=== PATIENT | male | born 1960 | race Caucasian/White ===

== ENCOUNTER 2023-05-03 08:23 | Inpatient (IN) | payer MEDICARE, OTHER ==
[2023-05-03] MEDS ORDERED: Aspirin 81 MG Tab.Chew PO ONE (08:43)
[2023-05-03] MEDS ORDERED: Nitroglycerin 0.4 MG Tab.SL SL PRN (08:43)
[2023-05-03] MEDS ORDERED: Sodium Chloride 0.9% 10 ML Syringe FLUSH PRN (08:43)
[2023-05-03] MEDS ORDERED: Morphine 4 MG/ML Syringe IVPUSH PRN (08:43)
[2023-05-03 08:47] LABS: BASOPHILS PERCENT AUTO 0.1 % (0.1-1.3); EOSINOPHILS ABSOLUTE AUTO 0.09 K/uL (0.00-0.40); EOSINOPHILS PERCENT AUTO 1.3 % (0.0-5.4); HEMATOCRIT 47.5 % (38.4-49.7); HEMOGLOBIN 15.7 g/dL (12.9-16.9); IMMATURE GRAN PERCENT AUTO 0.1 % (0.0-0.7); LYMPHOCYTES ABSOLUTE AUTO 2.15 K/uL (0.8-3.3); LYMPHOCYTES PERCENT AUTO 31.6 % (11.4-47.7); MEAN CORPUSCULAR HEMOGLOBIN 29.5 pg (31.6-35.5); MEAN CORPUSCULAR HGB CONC 33.1 g/dL (31.6-35.5); MEAN CORPUSCULAR VOLUME 89.1 fL (81.4-99.0); MONOCYTES ABSOLUTE AUTO 0.75 K/uL (0.20-0.90); NEUTROPHILS ABSOLUTE AUTO 3.79 K/uL (1.0-7.6); NEUTROPHILS PERCENT AUTO 55.9 % (40.0-78.1); PLATELET COUNT,PLT 114 K/uL (130-375); RED BLOOD CELL COUNT 5.33 M/uL (4.14-5.76); WHITE BLOOD CELL COUNT,WBC 6.8 K/uL (3.2-11.0)
[2023-05-03 08:48] LABS: BASOPHILS ABSOLUTE AUTO 0.01 K/uL (0.00-0.10); IMMATURE GRAN ABSOLUTE AUTO 0.01 K/uL (0.00-0.23)
[2023-05-03 09:01] LABS: BASE EXCESS VENOUS -1.5 mm/L; BICARBONATE,VENOUS 22.5 mmol/L; CARBOXYHEMOGLOBIN 2.3 % (0.0-1.6); METHEMOGLOBIN 0.6 %; O2 SATURATION VENOUS 55.7; OXYHEMOGLOBIN 54.1 %; PCO2 VENOUS 37.6 mm/Hg; PH,VENOUS 7.394 (7.350-7.450); PO2 VENOUS 32.3 mm/Hg; TOTAL HEMOGLOBIN 16.4 g/dL (13.5-18.0)
[2023-05-03 09:02] LABS: A/G RATIO 0.8 (1.2-2.2); ALANINE AMINOTRANSFERASE,ALT 47 U/L (12-78); ALBUMIN 3.5 g/dL (3.4-5.0); ALKALINE PHOSPHATASE 90 U/L (46-116); ASPARTATE AMNIOTRANSFERASE,AST 40 U/L (15-37); BILIRUBIN TOTAL 0.8 mg/dL (0.2-1.0); BLOOD UREA NITROGEN,BUN 15 mg/dL (7-18); CALCIUM 8.7 mg/dL (8.5-10.1); CARBON DIOXIDE,CO2 22 mmol/L (21-32); CHLORIDE,CL 105 mmol/L (100-108); ESTIMATED GFR 86 mL/min (>60); GLUCOSE RANDOM 171 mg/dL (74-106); SODIUM,NA 139 mmol/L (140-148); TROPONIN I HIGH SENSITIVITY 6.8 pg/mL (<=60.3)
[2023-05-03] MEDS ORDERED: Albuterol/Ipratropium 3.0-0.5 MG/3 ML Neb Soln NEB ONE (10:00)
[2023-05-03] MEDS ORDERED: Sodium Chloride 0.9% 10 ML Syringe FLUSH ONE (12:26)
[2023-05-03] MEDS ORDERED: Iopamidol 755 Mg/ML 100 ML Bottle IV SCH (12:30)
[2023-05-03] MEDS ORDERED: Sodium Chloride 0.9% 100 ML IV SCH (12:30)
[2023-05-03] MEDS ORDERED: cefTRIAXone 1 GM in Sodium Chloride 0.9% 50 ML IV ONE (14:36)
[2023-05-03] MEDS ORDERED: Doxycycline 100 MG in Sodium Chloride 0.9% 100 ML IV ONE (14:37)
[2023-05-03] MEDS ORDERED: Sodium Chloride 0.9% 1,000 ML IV SCH (14:45)
[2023-05-03 16:44] LABS: CORONAVIRUS COVID-19 NAA NEGATIVE (NEGATIVE); INFLUENZA A NAA NEGATIVE (NEGATIVE); INFLUENZA B NAA NEGATIVE (NEGATIVE); RESPIRATORY SYNCYTIAL VIR NAA NEGATIVE (NEGATIVE)
[2023-05-03] MEDS ORDERED: Acetaminophen 325 MG Tab PO PRN (16:52)
[2023-05-03] MEDS ORDERED: Albuterol 0.083% 2.5 MG/3 ML Neb Soln NEB PRN (16:52)
[2023-05-03] MEDS ORDERED: Ondansetron 4 MG/2 ML SDV IV PRN (16:52)
[2023-05-03] MEDS ORDERED: guaiFENesin/Dextromethorphan 100-10 MG/5 ML Soln 10 ML Cup PO PRN (16:52)
[2023-05-03] MEDS ORDERED: Ondansetron 4 MG Tab.DIS PO PRN (16:52)
[2023-05-03] MEDS ORDERED: Sennosides/Docusate Sodium 50-8.6 MG Tab PO PRN (16:52)
[2023-05-03] MEDS ORDERED: Benzonatate 100 MG Cap PO PRN (16:52)
[2023-05-03] MEDS ORDERED: Melatonin 3 MG Tab PO PRN (16:52)
[2023-05-03] MEDS ORDERED: Magnesium Hydroxide 400 MG/5 ML Susp 30 ML Cup PO PRN (16:52)
[2023-05-03] MEDS: Insulin Lispro 100 Unit/ML 3 ML KwikPen SUBCUT SCH ×2 (17:59→21:41)
[2023-05-03] MEDS: metFORMIN 500 MG Tab PO SCH (18:00)
[2023-05-03] MEDS: Albuterol/Ipratropium 3.0-0.5 MG/3 ML Neb Soln NEB SCH ×2 (18:01→21:42)
[2023-05-03] MEDS ORDERED: Arformoterol 15 MCG/2 ML Neb Soln INH SCH (21:00)
[2023-05-03] MEDS: Mirtazapine 15 MG Tab PO SCH (21:42)
[2023-05-03] MEDS: Lactobacillus Rhamnosus GG (Probiotic) Cap PO SCH (21:42)
[2023-05-03] MEDS: busPIRone 5 MG Tab PO SCH (21:42)
[2023-05-03] MEDS: Doxycycline 100 MG Cap PO SCH (21:45)
[2023-05-04 06:07] LABS: HEMATOCRIT 44.4 % (38.4-49.7); HEMOGLOBIN 14.5 g/dL (12.9-16.9); MEAN CORPUSCULAR HEMOGLOBIN 29.4 pg (31.6-35.5); MEAN CORPUSCULAR HGB CONC 32.7 g/dL (31.6-35.5); MEAN CORPUSCULAR VOLUME 89.9 fL (81.4-99.0); RED BLOOD CELL COUNT 4.94 M/uL (4.14-5.76); WHITE BLOOD CELL COUNT,WBC 4.3 K/uL (3.2-11.0)
[2023-05-04 06:26] LABS: ANION GAP 9.7 mmol/L (5.0-14.0); CALCIUM 8.3 mg/dL (8.5-10.1); CREATININE 0.9 mg/dL (0.8-1.3); MAGNESIUM 1.7 mg/dL (1.8-2.4); POTASSIUM,K 4.3 mmol/L (3.6-5.2)
[2023-05-04] MEDS: Albuterol/Ipratropium 3.0-0.5 MG/3 ML Neb Soln NEB SCH ×4 (07:19→20:36)
[2023-05-04] MEDS: Insulin Lispro 100 Unit/ML 3 ML KwikPen SUBCUT SCH ×4 (08:51→20:35)
[2023-05-04] MEDS: Lactobacillus Rhamnosus GG (Probiotic) Cap PO SCH ×2 (08:53→20:36)
[2023-05-04] MEDS: Montelukast 10 MG Tab PO SCH (08:54)
[2023-05-04] MEDS: Metoprolol Tartrate 50 MG Tab PO SCH (08:54)
[2023-05-04] MEDS: Clopidogrel 75 MG Tab PO SCH (08:55)
[2023-05-04] MEDS: Levothyroxine 50 MCG Tab PO SCH (08:55)
[2023-05-04] MEDS: Pantoprazole 40 MG Tab.CR PO SCH (08:55)
[2023-05-04] MEDS: Isosorbide Mononitrate 30 MG Tab.ER PO SCH (08:55)
[2023-05-04] MEDS: Aspirin 81 MG Tab.EC PO SCH (08:55)
[2023-05-04] MEDS: Doxycycline 100 MG Cap PO SCH ×2 (08:55→20:36)
[2023-05-04] MEDS: busPIRone 5 MG Tab PO SCH ×2 (08:56→20:35)
[2023-05-04] MEDS: Rosuvastatin 10 MG Tab PO SCH (08:56)
[2023-05-04] MEDS: metFORMIN 500 MG Tab PO SCH ×2 (08:56→17:20)
[2023-05-04] MEDS: Empagliflozin 10 MG Tab PO SCH (08:57)
[2023-05-04] MEDS: Magnesium Oxide 400 MG Tab PO SCH ×2 (08:58→20:36)
[2023-05-04] MEDS: Fluticasone NASAL Spray 16 GM Bottle NASBOTH SCH (09:03)
[2023-05-04] MEDS ORDERED: Magnesium Sulfate/Water 2 GM in Premix Bag 1 BAG IV SCH (10:00)
[2023-05-04] MEDS ORDERED: FLU (Fluarix Quad) QS2023-24(6MOS UP)/PF 60 MCG/0.5 ML Syringe IM ONE (10:00)
[2023-05-04] MEDS: cefTRIAXone 2 GM in Sodium Chloride 0.9% 50 ML IV SCH (10:14)
[2023-05-04] MEDS: Mirtazapine 15 MG Tab PO SCH (20:36)
[2023-05-05 05:49] LABS: HEMATOCRIT 43.4 % (38.4-49.7); HEMOGLOBIN 14.3 g/dL (12.9-16.9); MEAN CORPUSCULAR HEMOGLOBIN 29.5 pg (31.6-35.5); MEAN CORPUSCULAR HGB CONC 32.9 g/dL (31.6-35.5); MEAN CORPUSCULAR VOLUME 89.5 fL (81.4-99.0); RED BLOOD CELL COUNT 4.85 M/uL (4.14-5.76); WHITE BLOOD CELL COUNT,WBC 5.5 K/uL (3.2-11.0)
[2023-05-05 06:04] LABS: CALCIUM 8.3 mg/dL (8.5-10.1); CREATININE 0.9 mg/dL (0.8-1.3)
[2023-05-05] MEDS: Insulin Lispro 100 Unit/ML 3 ML KwikPen SUBCUT SCH ×4 (06:55→21:54)
[2023-05-05] MEDS: metFORMIN 500 MG Tab PO SCH ×2 (06:57→16:47)
[2023-05-05] MEDS: Levothyroxine 50 MCG Tab PO SCH (06:58)
[2023-05-05] MEDS: Pantoprazole 40 MG Tab.CR PO SCH (06:58)
[2023-05-05] MEDS: Isosorbide Mononitrate 30 MG Tab.ER PO SCH (06:58)
[2023-05-05] MEDS: Albuterol/Ipratropium 3.0-0.5 MG/3 ML Neb Soln NEB SCH ×4 (07:03→21:53)
[2023-05-05] MEDS: cefTRIAXone 2 GM in Sodium Chloride 0.9% 50 ML IV SCH (08:01)
[2023-05-05] MEDS: Fluticasone NASAL Spray 16 GM Bottle NASBOTH SCH (08:02)
[2023-05-05] MEDS: Lactobacillus Rhamnosus GG (Probiotic) Cap PO SCH ×2 (08:04→21:51)
[2023-05-05] MEDS: Rosuvastatin 10 MG Tab PO SCH (08:04)
[2023-05-05] MEDS: Empagliflozin 10 MG Tab PO SCH (08:04)
[2023-05-05] MEDS: busPIRone 5 MG Tab PO SCH ×2 (08:04→21:50)
[2023-05-05] MEDS: Aspirin 81 MG Tab.EC PO SCH (08:04)
[2023-05-05] MEDS: Clopidogrel 75 MG Tab PO SCH (08:04)
[2023-05-05] MEDS: Magnesium Oxide 400 MG Tab PO SCH ×2 (08:04→21:50)
[2023-05-05] MEDS: Doxycycline 100 MG Cap PO SCH ×2 (08:04→21:52)
[2023-05-05] MEDS: Metoprolol Tartrate 50 MG Tab PO SCH (08:04)
[2023-05-05] MEDS: Montelukast 10 MG Tab PO SCH (08:04)
[2023-05-05] MEDS: Mirtazapine 15 MG Tab PO SCH (21:52)
[2023-05-06] MEDS: Pantoprazole 40 MG Tab.CR PO SCH (07:00)
[2023-05-06] MEDS: metFORMIN 500 MG Tab PO SCH ×2 (07:00→16:59)
[2023-05-06] MEDS: Isosorbide Mononitrate 30 MG Tab.ER PO SCH (07:00)
[2023-05-06] MEDS: Levothyroxine 50 MCG Tab PO SCH (07:00)
[2023-05-06] MEDS: Insulin Lispro 100 Unit/ML 3 ML KwikPen SUBCUT SCH ×4 (07:02→20:57)
[2023-05-06] MEDS: Albuterol/Ipratropium 3.0-0.5 MG/3 ML Neb Soln NEB SCH ×4 (07:07→21:00)
[2023-05-06] MEDS: cefTRIAXone 2 GM in Sodium Chloride 0.9% 50 ML IV SCH (08:32)
[2023-05-06] MEDS: Magnesium Oxide 400 MG Tab PO SCH ×2 (08:33→20:59)
[2023-05-06] MEDS: Empagliflozin 10 MG Tab PO SCH (08:33)
[2023-05-06] MEDS: Rosuvastatin 10 MG Tab PO SCH (08:34)
[2023-05-06] MEDS: Montelukast 10 MG Tab PO SCH (08:34)
[2023-05-06] MEDS: busPIRone 5 MG Tab PO SCH ×2 (08:34→20:59)
[2023-05-06] MEDS: Lactobacillus Rhamnosus GG (Probiotic) Cap PO SCH ×2 (08:34→20:58)
[2023-05-06] MEDS: Fluticasone NASAL Spray 16 GM Bottle NASBOTH SCH (08:34)
[2023-05-06] MEDS: Aspirin 81 MG Tab.EC PO SCH (08:35)
[2023-05-06] MEDS: Clopidogrel 75 MG Tab PO SCH (08:35)
[2023-05-06] MEDS: Doxycycline 100 MG Cap PO SCH ×2 (08:36→21:00)
[2023-05-06] MEDS: Metoprolol Tartrate 50 MG Tab PO SCH (08:36)
[2023-05-06] MEDS: Mirtazapine 15 MG Tab PO SCH (21:00)
[2023-05-07] MEDS: Insulin Lispro 100 Unit/ML 3 ML KwikPen SUBCUT SCH (06:59)
[2023-05-07] MEDS: Levothyroxine 50 MCG Tab PO SCH (07:00)
[2023-05-07] MEDS: metFORMIN 500 MG Tab PO SCH (07:01)
[2023-05-07] MEDS: Pantoprazole 40 MG Tab.CR PO SCH (07:01)
[2023-05-07] MEDS: Isosorbide Mononitrate 30 MG Tab.ER PO SCH (07:02)
[2023-05-07] MEDS: Albuterol/Ipratropium 3.0-0.5 MG/3 ML Neb Soln NEB SCH ×2 (07:13→10:53)
[2023-05-07] MEDS: Clopidogrel 75 MG Tab PO SCH (09:22)
[2023-05-07] MEDS: busPIRone 5 MG Tab PO SCH (09:23)
[2023-05-07] MEDS: Lactobacillus Rhamnosus GG (Probiotic) Cap PO SCH (09:23)
[2023-05-07] MEDS: Rosuvastatin 10 MG Tab PO SCH (09:23)
[2023-05-07] MEDS: Fluticasone NASAL Spray 16 GM Bottle NASBOTH SCH (09:23)
[2023-05-07] MEDS: Aspirin 81 MG Tab.EC PO SCH (09:23)
[2023-05-07] MEDS: Montelukast 10 MG Tab PO SCH (09:24)
[2023-05-07] MEDS: Magnesium Oxide 400 MG Tab PO SCH (09:24)
[2023-05-07] MEDS: Doxycycline 100 MG Cap PO SCH (09:24)
[2023-05-07] MEDS: Empagliflozin 10 MG Tab PO SCH (09:24)
[2023-05-07] MEDS: Metoprolol Tartrate 50 MG Tab PO SCH (09:25)
[2023-05-07] MEDS: cefTRIAXone 2 GM in Sodium Chloride 0.9% 50 ML IV SCH (09:33)
== END 2023-05-07 11:30 | disposition home or self-care (01) | DRG 193 ==
LOC: JP.ED 08:23 → JP.MS 15:33
PROVIDERS: ADMIT Internal Medicine; ATTEND Hospitalist
DX: T58.91XA Toxic effect of carbon monoxide from unspecified source, accidental (unintentional), initial encounter (principal); J18.9 Pneumonia, unspecified organism; J96.01 Acute respiratory failure with hypoxia; J44.0 Chronic obstructive pulmonary disease with (acute) lower respiratory infection; I25.10 Atherosclerotic heart disease of native coronary artery without angina pectoris; E11.9 Type 2 diabetes mellitus without complications; I10 Essential (primary) hypertension; E78.00 Pure hypercholesterolemia, unspecified; K21.9 Gastro-esophageal reflux disease without esophagitis; F41.9 Anxiety disorder, unspecified; Z79.02 Long term (current) use of antithrombotics/antiplatelets; F32.A Depression, unspecified; E03.9 Hypothyroidism, unspecified; Z79.890 Hormone replacement therapy; Z79.4 Long term (current) use of insulin; Z88.0 Allergy status to penicillin; Z88.2 Allergy status to sulfonamides; Z88.8 Allergy status to other drugs, medicaments and biological substances; Z79.52 Long term (current) use of systemic steroids; Z79.82 Long term (current) use of aspirin; Z79.899 Other long term (current) drug therapy; Z95.5 Presence of coronary angioplasty implant and graft; Z90.49 Acquired absence of other specified parts of digestive tract; Z87.891 Personal history of nicotine dependence; Z11.52 Encounter for screening for COVID-19
CPT/HCPCS: 0241U; 36415; 71045; 71045-26; 71275; 80048; 80053; 82803; 82947; 83605; 83735; 83880; 84145; 84484; 85025; 85027; 87070; 87205; 93005; 93010; 94640; 96365; 96368; 99222; 99232; 99238; 99285; 99285-25; A9270-GY; J0696; J1815; J3475; J3490; J7030; J7620; Q9967